=== PATIENT | female | born 1950 | race Caucasian/White ===

== ENCOUNTER 2018-11-29 10:53 | Day surgery (SDC) | payer OTHER ==
[~2018-11-29 10:53] MED LIST: PROPOFOL 500 MG/50 ML EMU IV ONE
[2018-11-29 11:21] VITALS: RESP 16
[2018-11-29 13:25] VITALS: BP 116/67; PULSE 62; TEMP 96; O2SAT 95
== END 2018-11-29 13:40 | disposition home or self-care (01) | DRG 951 ==
LOC: SURG 10:53
PROVIDERS: ATTEND Surgery
DX: Z12.11 Encounter for screening for malignant neoplasm of colon (principal); K57.32 Diverticulitis of large intestine without perforation or abscess without bleeding; Z86.010 Personal history of colon polyps
CPT/HCPCS: J2001; J2704